=== PATIENT | female | born 1950 | race Hispanic/Latino ===

== ENCOUNTER 2020-09-22 20:04 | Inpatient (IN) | payer OTHER ==
[~2020-09-22] VITALS: Ht 160 cm; Wt 65.2 kg
[2020-09-22] MEDS ORDERED: CEFTRIAXONE 2GM VIAL ONE (21:22)
[2020-09-22] MEDS ORDERED: AZITHROMYCIN 500MG+NS 250ML 250 ML IV ONE (21:22)
[2020-09-22 21:43] LABS: BASOPHILS % (AUTO) 0.2 % (0.0-5.0); EOSINOPHILS % (AUTO) 0.9 % (0.0-8.0); HEMATOCRIT 36.6 % (36-48); LYMPHOCYTES % (AUTO) 3.3 % (21.0-51.0); MEAN CORPUSCULAR HEMOGLOBIN 26.9 pg (27.0-33.0); MEAN CORPUSCULAR HGB CONC 33.1 g/dL (32.0-36.0); MEAN CORPUSCULAR VOLUME 81.5 fL (79-99); NEUTROPHILS % (AUTO) 93.1 % (40.0-77.0); PLATELET COUNT (AUTO) 253 K/uL (130-400); RED BLOOD CELL COUNT(AUTO) 4.49 MIL/uL (4.00-5.50); RED CELL DISTRIBUTION WIDTH 12.5 % (11.0-15.5)
[2020-09-22 21:53] LABS: ABG HCO3 23.7 mmol/L (21.0-28.0); ABG OXYGEN SATURATION 91.8 % (95.0-99.0); ABG PCO2 33 mmHg (32-45)
[2020-09-22 21:57] LABS: INR 1.1 (0.85-1.15); PROTHROMBIN TIME 11.7 SEC (9.6-11.6)
[2020-09-22 21:58] LABS: PARTIAL THROMBOPLASTIN TIME 35.5 SEC (26.3-35.5)
[2020-09-22 22:09] LABS: B-TYPE NATRIURETIC PEPTIDE 134 pg/mL (0-100)
[2020-09-22 22:15] LABS: CARBON DIOXIDE 25 mmol/L (21-32); CHLORIDE 93 mmol/L (101-111); CREATININE 0.8 mg/dL (0.5-1.5); GLOMERULAR FILTR. RATE CALC 75 mL/min (>60); GLUCOSE,RANDOM 121 mg/dL (70-105); POTASSIUM 3.9 mmol/L (3.5-5.1); SODIUM SERUM 130 mmol/L (136-145); UREA NITROGEN, BLOOD 6 mg/dL (7-18)
[2020-09-22 22:22] LABS: APPEARANCE,URINE Clear (CLEAR); BILIRUBIN,URINE Negative (NEGATIVE); COLOR,URINE Yellow (YELLOW); GLUCOSE, URINE (UA) Negative (NEGATIVE); KETONES,URINE Trace mg/dL (NEGATIVE); LEUKOCYTE ESTERASE ,URINE Negative (NEGATIVE); NITRATE,URINE Negative (NEGATIVE); OCCULT BLOOD,URINE Negative (NEGATIVE); PROTEIN,URINE Negative (NEGATIVE); UROBILINOGEN,URINE 0.2 mg/dL (0.2-1.0)
[2020-09-22 22:35] LABS: ALANINE AMINOTRANSFERASE 57 U/L (12-78); ALBUMIN 2.9 g/dL (3.5-5.0); ASPARTATE AMINOTRANSFERASE 58 U/L (10-37); BILIRUBIN,TOTAL 0.5 mg/dL (0.2-1.0); CREATINE KINASE, TOTAL 142 U/L (21-232); MYOGLOBIN 107 ng/mL (10-92); TOTAL PROTEIN, SERUM 7.3 g/dL (6.0-8.3); TROPONIN I < 0.04 ng/mL (0.00-0.06)
[2020-09-22] MEDS ORDERED: ALBUTEROL INHALER 90MCG/INH IH ONE (22:40)
[2020-09-22] MEDS ORDERED: DEXAMETHASONE SOD PHOSPHATE 10MG/ML 1ML VIAL ONE (22:41)
[2020-09-22] MEDS ORDERED: IOHEXOL 350 MG/ML 100ML INFUS..BTL IV ONE (23:41)
[2020-09-22] MEDS ORDERED: DEXTROSE 50%-WATER 50 ML DISP.SYRIN IV PRN (23:45)
[2020-09-22] MEDS ORDERED: GLUCAGON 1MG KIT 1 MG ML IM PRN (23:45)
[2020-09-22] MEDS ORDERED: IPRATROPIUM/ALBUTEROL SULFATE 3 ML SOLUTION IH PRN (23:45)
[2020-09-23] MEDS: SOLU-MEDROL 40MG VIAL IVP SCH ×3 (06:00→22:00)
[2020-09-23] MEDS: FUROSEMIDE 40MG VIAL IVP SCH ×2 (06:00→18:00)
[2020-09-23 06:39] LABS: BASOPHILS % (AUTO) 0.1 % (0.0-5.0); HEMATOCRIT 33.9 % (36-48); LYMPHOCYTES % (AUTO) 3.5 % (21.0-51.0); MEAN CORPUSCULAR HEMOGLOBIN 26.9 pg (27.0-33.0); MEAN CORPUSCULAR VOLUME 81.3 fL (79-99); MONOCYTES % (AUTO) 1.2 % (3.0-13.0); NEUTROPHILS % (AUTO) 94.7 % (40.0-77.0); PLATELET COUNT (AUTO) 242 K/uL (130-400); RED BLOOD CELL COUNT(AUTO) 4.17 MIL/uL (4.00-5.50); RED CELL DISTRIBUTION WIDTH 12.6 % (11.0-15.5); WHITE BLOOD COUNT (AUTO) 10.8 K/uL (4.8-10.8)
[2020-09-23 06:46] LABS: CREATININE 0.7 mg/dL (0.5-1.5); POTASSIUM 3.8 mmol/L (3.5-5.1)
[2020-09-23 07:03] LABS: INR 1.11 (0.85-1.15); PROTHROMBIN TIME 11.8 SEC (9.6-11.6)
[2020-09-23 07:04] LABS: PARTIAL THROMBOPLASTIN TIME 34.8 SEC (26.3-35.5)
[2020-09-23 07:13] LABS: B-TYPE NATRIURETIC PEPTIDE 144 pg/mL (0-100)
[2020-09-23] MEDS: INSULIN R PO SS1 SQ SCH ×4 (07:30→21:00)
[2020-09-23 08:29] LABS: ABG BASE EXCESS 0.7 mmol/L (-2.0-3.0); ABG HCO3 24.8 mmol/L (21.0-28.0); ABG OXYGEN SATURATION 96.9 % (95.0-99.0); ABG PCO2 38 mmHg (32-45)
[2020-09-23] MEDS ORDERED: SOLU-MEDROL 40MG VIAL ONE ×2 (08:50→16:05)
[2020-09-23] MEDS ORDERED: FUROSEMIDE 40MG VIAL ONE ×2 (08:50→21:20)
[2020-09-23] MEDS ORDERED: ENOXAPARIN SODIUM 40 MG/0.4 ML SYRINGE SQ ONE (08:50)
[2020-09-23] MEDS ORDERED: CEFTRIAXONE 1G VIAL ONE ×2 (08:53→21:21)
[2020-09-23] MEDS: CEFTRIAXONE 1G VIAL IVP SCH ×2 (09:00→21:00)
[2020-09-23] MEDS: ENOXAPARIN SODIUM 40 MG/0.4 ML SYRINGE SQ SCH (09:00)
[2020-09-23] MEDS ORDERED: INSULIN HUMULIN R 100 UNIT/ML 3ML ONE ×3 (12:20→21:22)
[2020-09-23] MEDS: AZITHROMYCIN 500MG+NS 250ML 250 ML IV SCH (21:00)
[2020-09-23] MEDS ORDERED: AZITHROMYCIN 500MG+NS 250ML 250 ML IV ONE (21:21)
[2020-09-24] MEDS ORDERED: SOLU-MEDROL 40MG VIAL ONE ×2 (01:10→14:04)
[2020-09-24 03:50] LABS: ABG BASE EXCESS 3.9 mmol/L (-2.0-3.0); ABG HCO3 27.7 mmol/L (21.0-28.0); ABG OXYGEN SATURATION 93.8 % (95.0-99.0); ABG PCO2 39 mmHg (32-45)
[2020-09-24 05:31] LABS: HEMATOCRIT 38.9 % (36-48); MEAN CORPUSCULAR HGB CONC 33.4 g/dL (32.0-36.0); MEAN CORPUSCULAR VOLUME 80.7 fL (79-99); RED BLOOD CELL COUNT(AUTO) 4.82 MIL/uL (4.00-5.50); RED CELL DISTRIBUTION WIDTH 12.5 % (11.0-15.5); WHITE BLOOD COUNT (AUTO) 17.8 K/uL (4.8-10.8)
[2020-09-24 05:39] LABS: POTASSIUM 3.4 mmol/L (3.5-5.1)
[2020-09-24] MEDS: SOLU-MEDROL 40MG VIAL IVP SCH ×3 (06:00→22:26)
[2020-09-24] MEDS: FUROSEMIDE 40MG VIAL IVP SCH ×2 (06:00→18:00)
[2020-09-24] MEDS: INSULIN R PO SS1 SQ SCH ×4 (07:30→21:00)
[2020-09-24] MEDS ORDERED: CEFTRIAXONE 1G VIAL ONE (08:37)
[2020-09-24] MEDS ORDERED: ENOXAPARIN SODIUM 40 MG/0.4 ML SYRINGE SQ ONE (08:37)
[2020-09-24] MEDS ORDERED: 0.9%NACL 100ML 100 ML IV ONE (08:38)
[2020-09-24] MEDS: CEFTRIAXONE 1G VIAL IVP SCH ×2 (09:00→22:26)
[2020-09-24] MEDS: ENOXAPARIN SODIUM 40 MG/0.4 ML SYRINGE SQ SCH (09:00)
[2020-09-24] MEDS ORDERED: BUDESONIDE 0.5 MG/2 ML INH IH SCH (09:00)
[2020-09-24] MEDS ORDERED: INSULIN HUMULIN R 100 UNIT/ML 3ML ONE (12:26)
[2020-09-24] MEDS ORDERED: ACETAMINOPHEN 325 MG TAB ONE (14:26)
[2020-09-24] MEDS ORDERED: ONDANSETRON 4MG TABLET PO PRN (14:30)
[2020-09-24] MEDS ORDERED: POTASSIUM CHLORIDE 10% ELIXIR 20 MEQ/15 ML UDCUP PO PRN (14:30)
[2020-09-24] MEDS ORDERED: POTASSIUM CHLORIDE 20MEQ/100ML 100 ML IV PRN (14:30)
[2020-09-24] MEDS ORDERED: LIDOCAINE HCL-MPF 1% 2ML VIAL IV PRN (14:30)
[2020-09-24] MEDS: FLUTICASONE/VILANTEROL 1 EACH AER.POW.BA IH SCH (14:35)
[2020-09-24] MEDS ORDERED: ALBUTEROL INHALER 90MCG/INH IH PRN (14:45)
[2020-09-24] MEDS ORDERED: ACETAMINOPHEN 325 MG TAB PO PRN (14:45)
[2020-09-24] MEDS ORDERED: CHOL500050 PO (15:24)
[2020-09-24] MEDS ORDERED: A20IH1 IH (15:24)
[2020-09-24] MEDS ORDERED: DOXY100T21 PO (15:24)
[2020-09-24] MEDS ORDERED: PRAV20TA4 PO (15:24)
[2020-09-24] MEDS ORDERED: VITA100T PO (15:24)
[2020-09-24] MEDS ORDERED: PANT40TA54 PO (15:24)
[2020-09-24] MEDS ORDERED: FLUT16H NASAL (15:24)
[2020-09-24] MEDS ORDERED: ACET-3194 PO (15:24)
[2020-09-24] MEDS ORDERED: FA/M1TAB32 PO (15:24)
[2020-09-24] MEDS ORDERED: LINA145C PO (15:24)
[2020-09-24] MEDS ORDERED: FUROSEMIDE 40MG VIAL ONE (16:43)
[2020-09-24 22:00] VITALS: BP 141/63
[2020-09-24] MEDS: AZITHROMYCIN 500MG+NS 250ML 250 ML IV SCH (22:26)
[2020-09-25] VITALS: BP 143/75
[2020-09-25 03:42] LABS: ABG BASE EXCESS 5.9 mmol/L (-2.0-3.0); ABG OXYGEN SATURATION 94.4 % (95.0-99.0); ABG PCO2 41 mmHg (32-45)
[2020-09-25 04:00] VITALS: BP 133/70
[2020-09-25] MEDS: FUROSEMIDE 40MG VIAL IVP SCH ×2 (06:05→18:00)
[2020-09-25] MEDS: SOLU-MEDROL 40MG VIAL IVP SCH ×3 (06:06→22:55)
[2020-09-25 06:13] LABS: HEMATOCRIT 34.8 % (36-48); MEAN CORPUSCULAR HEMOGLOBIN 27.3 pg (27.0-33.0); MEAN CORPUSCULAR HGB CONC 33.9 g/dL (32.0-36.0); MEAN CORPUSCULAR VOLUME 80.4 fL (79-99); RED BLOOD CELL COUNT(AUTO) 4.33 MIL/uL (4.00-5.50); RED CELL DISTRIBUTION WIDTH 12.4 % (11.0-15.5); WHITE BLOOD COUNT (AUTO) 8.3 K/uL (4.8-10.8)
[2020-09-25 06:16] LABS: CREATININE 0.7 mg/dL (0.5-1.5); POTASSIUM 3.6 mmol/L (3.5-5.1)
[2020-09-25] MEDS: INSULIN R PO SS1 SQ SCH ×4 (06:52→21:00)
[2020-09-25 08:00] VITALS: BP 136/75
[2020-09-25] MEDS: LINZESS PO SCH (09:00)
[2020-09-25] MEDS: CEFTRIAXONE 1G VIAL IVP SCH ×2 (09:19→22:14)
[2020-09-25] MEDS: KCL 20 MEQ ERTAB PO PRN ×2 (09:19→13:31)
[2020-09-25] MEDS: ENOXAPARIN SODIUM 40 MG/0.4 ML SYRINGE SQ SCH (09:20)
[2020-09-25] MEDS: FLUTICASONE/VILANTEROL 1 EACH AER.POW.BA IH SCH (11:03)
[2020-09-25 12:00] VITALS: BP 143/60
[2020-09-25 18:39] VITALS: BP 134/72
[2020-09-25 21:00] VITALS: BP 145/100
[2020-09-25] MEDS: AZITHROMYCIN 500MG+NS 250ML 250 ML IV SCH (22:14)
[2020-09-26] VITALS: BP 136/72
[2020-09-26 04:01] VITALS: BP 135/67
[2020-09-26] MEDS: INSULIN R PO SS1 SQ SCH ×4 (06:08→21:00)
[2020-09-26] MEDS: FUROSEMIDE 40MG VIAL IVP SCH ×2 (06:31→17:26)
[2020-09-26] MEDS: SOLU-MEDROL 40MG VIAL IVP SCH ×3 (06:31→22:50)
[2020-09-26] MEDS: CEFTRIAXONE 1G VIAL IVP SCH ×2 (08:53→22:50)
[2020-09-26] MEDS: FLUTICASONE/VILANTEROL 1 EACH AER.POW.BA IH SCH (08:54)
[2020-09-26] MEDS: LINZESS PO SCH (08:59)
[2020-09-26] MEDS: ENOXAPARIN SODIUM 40 MG/0.4 ML SYRINGE SQ SCH (09:09)
[2020-09-26 12:17] VITALS: BP 131/68
[2020-09-26 20:00] VITALS: BP 145/71
[2020-09-26] MEDS: AZITHROMYCIN 500MG+NS 250ML 250 ML IV SCH (22:50)
[2020-09-27] VITALS: BP 127/54
[2020-09-27 03:59] VITALS: BP 126/69
[2020-09-27 04:07] LABS: HEMATOCRIT 38.2 % (36-48); MEAN CORPUSCULAR HEMOGLOBIN 26.7 pg (27.0-33.0); MEAN CORPUSCULAR HGB CONC 33.2 g/dL (32.0-36.0); MEAN CORPUSCULAR VOLUME 80.4 fL (79-99); PLATELET COUNT (AUTO) 433 K/uL (130-400); RED BLOOD CELL COUNT(AUTO) 4.75 MIL/uL (4.00-5.50); RED CELL DISTRIBUTION WIDTH 12.5 % (11.0-15.5); WHITE BLOOD COUNT (AUTO) 10.5 K/uL (4.8-10.8)
[2020-09-27 04:18] LABS: CREATININE 0.9 mg/dL (0.5-1.5); POTASSIUM 3.5 mmol/L (3.5-5.1)
[2020-09-27 04:52] LABS: LYMPHOCYTES % (MANUAL) 11 % (22-44); MAN.DIFF COMMENT-IMPRESSION MANUAL DIFFERENTIAL; MONOCYTES % (MANUAL) 5 % (2-9); SEGMENTED NEUTROPHILS % 84 % (40-70)
[2020-09-27 04:57] LABS: PLATELET MORPHOLOGY COMMENT SLIGHT INCREASED
[2020-09-27] MEDS: FUROSEMIDE 40MG VIAL IVP SCH (06:06)
[2020-09-27] MEDS: SOLU-MEDROL 40MG VIAL IVP SCH ×2 (06:06→14:24)
[2020-09-27] MEDS: INSULIN R PO SS1 SQ SCH ×2 (06:07→11:30)
[2020-09-27] MEDS: CEFTRIAXONE 1G VIAL IVP SCH (08:31)
[2020-09-27] MEDS: ENOXAPARIN SODIUM 40 MG/0.4 ML SYRINGE SQ SCH (08:32)
[2020-09-27 08:37] VITALS: BP 143/76
[2020-09-27] MEDS: FLUTICASONE/VILANTEROL 1 EACH AER.POW.BA IH SCH (08:55)
[2020-09-27] MEDS: LINZESS PO SCH (08:56)
[2020-09-27 12:00] VITALS: BP 150/52
[2020-09-27] MEDS ORDERED: FLUTICASONE PROPIONATE 50MCG/SPRAY 16 GM BOTTLE NS SCH (15:15)
[2020-09-27] MEDS ORDERED: ALBUTEROL SULFATE 90 MCG IH SCH (15:15)
[2020-09-27 16:00] VITALS: BP 138/64
[2020-09-27] MEDS ORDERED: ATORVASTATIN 10 MG TABLET PO SCH (21:00)
[2020-09-28] MEDS ORDERED: PANTOPRAZOLE 40 MG TAB DR PO SCH (09:00)
[2020-09-28] MEDS ORDERED: VITAMIN B COMPLEX 1 CAPSULE PO SCH (09:00)
[2020-09-28] MEDS ORDERED: **HM**(Linaclotide (Linzess) 145 MCG PO SCH (09:00)
[2020-09-28] MEDS ORDERED: MULTIVITAMIN WITH MINERALS TABLET PO SCH (09:00)
[2020-09-28] MEDS ORDERED: CHOLECALCIFEROL 2000 UNIT PO SCH (09:00)
== END 2020-09-27 16:10 | disposition home health service (06) | DRG 177 ==
LOC: EDH 20:04 → EDHIP 23:39 → OBSVTOIN 23:39 → INTOOBSV 23:39 → 4AH 09-24 20:35
PROVIDERS: ADMIT Internal Medicine Pulmonary Disease; ATTEND Internal Medicine Pulmonary Disease
DX: U07.1 COVID-19 (principal); J12.82 Pneumonia due to coronavirus disease 2019; J96.01 Acute respiratory failure with hypoxia; J44.0 Chronic obstructive pulmonary disease with (acute) lower respiratory infection; E78.5 Hyperlipidemia, unspecified; K21.9 Gastro-esophageal reflux disease without esophagitis; Z79.899 Other long term (current) drug therapy; Z88.8 Allergy status to other drugs, medicaments and biological substances
CPT/HCPCS: 36415; 36600; 71045; 71275; 80048; 80053; 81003; 82550; 82803; 82948; 83605; 83874; 83880; 84132; 84145; 84484; 85025; 85027; 85378; 85610; 85730; 86140; 86900; 86901; 87040; 87088; 87426; 87804; 93005; 94760; 99291; G0378; J0456; J0696; J1100; J1650; J1815; J1940; J2920; Q9967

== ENCOUNTER → 2021-06-26 | Outpatient (CLI) | payer OTHER ==
[~2021-06-26] MED LIST: A20IH1 IH; CHOL500050 PO; FA/M1TAB32 PO; FLUT16H NASAL; LINA145C PO; PANT40TA54 PO; PRAV20TA4 PO; VITA100T PO
== END | disposition home or self-care (01) ==
LOC: RAH 10:04
PROVIDERS: ATTEND Internal Medicine
DX: I07.1 Rheumatic tricuspid insufficiency (principal); E66.9 Obesity, unspecified; E78.5 Hyperlipidemia, unspecified
CPT/HCPCS: 93306; 93356

== ENCOUNTER → 2021-08-27 | Outpatient (CLI) | payer OTHER | END | disposition home or self-care (01) | LOC: RAH 09:45 | PROVIDERS: ATTEND Internal Medicine | DX: I83.813 Varicose veins of bilateral lower extremities with pain (principal); I70.203 Unspecified atherosclerosis of native arteries of extremities, bilateral legs | CPT/HCPCS: 93925; 93970 ==

== ENCOUNTER → 2021-11-03 | Outpatient (CLI) | payer OTHER | END | disposition home or self-care (01) | LOC: SHCH 09:24 | PROVIDERS: ATTEND Internal Medicine Cardiovascular Disease | DX: I87.2 Venous insufficiency (chronic) (peripheral) (principal) | CPT/HCPCS: 93970 ==

== ENCOUNTER 2022-03-15 21:49 | Emergency (ER) | payer OTHER ==
[~2022-03-15] VITALS: Ht 162.6 cm; Wt 69.9 kg
[2022-03-15 22:17] LABS: BASOPHILS % (AUTO) 0.4 % (0.0-5.0); EOSINOPHILS % (AUTO) 1.1 % (0.0-8.0); HEMATOCRIT 39.8 % (36-48); LYMPHOCYTES % (AUTO) 32.2 % (21.0-51.0); MEAN CORPUSCULAR HEMOGLOBIN 27.3 pg (27.0-33.0); MEAN CORPUSCULAR HGB CONC 32.4 g/dL (32.0-36.0); MEAN CORPUSCULAR VOLUME 84.3 fL (79-99); MONOCYTES % (AUTO) 6.3 % (3.0-13.0); NEUTROPHILS % (AUTO) 59.9 % (40.0-77.0); PLATELET COUNT (AUTO) 239 K/uL (130-400); RED BLOOD CELL COUNT(AUTO) 4.72 MIL/uL (4.00-5.50); RED CELL DISTRIBUTION WIDTH 13.1 % (11.0-15.5); WHITE BLOOD COUNT (AUTO) 7.9 K/uL (4.8-10.8)
[2022-03-15 22:34] LABS: POTASSIUM 3.7 mmol/L (3.5-5.1)
[2022-03-15 22:39] LABS: ALBUMIN 3.5 g/dL (3.5-5.0); BILIRUBIN,TOTAL 0.2 mg/dL (0.2-1.0)
[2022-03-15 23:20] LABS: B-TYPE NATRIURETIC PEPTIDE 23 pg/mL (0-100)
[2022-03-16 00:34] VITALS: BP 113/59
[2022-03-16] MEDS ORDERED: NITR0.4T SL (00:46)
== END 2022-03-16 01:19 | disposition home or self-care (01) ==
LOC: EDH 21:49
DX: R07.89 Other chest pain (principal); E78.00 Pure hypercholesterolemia, unspecified; Z90.49 Acquired absence of other specified parts of digestive tract; Z98.890 Other specified postprocedural states; Z79.899 Other long term (current) drug therapy; Z88.6 Allergy status to analgesic agent
CPT/HCPCS: 36415; 71045; 80053; 83880; 84484; 85025; 93005

== ENCOUNTER 2022-07-17 16:28 | Emergency (ER) | payer OTHER ==
[~2022-07-17] VITALS: Ht 162.6 cm; Wt 70.3 kg
[~2022-07-17 16:28] MED LIST changes: +NITR0.4T SL
[2022-07-17] MEDS ORDERED: ACETAMINOPHEN 325 MG TAB PO ONE (17:30)
[2022-07-17 17:48] LABS: BASOPHILS % (AUTO) 0.7 % (0.0-5.0); EOSINOPHILS % (AUTO) 2.6 % (0.0-8.0); LYMPHOCYTES % (AUTO) 35.6 % (21.0-51.0); MEAN CORPUSCULAR HEMOGLOBIN 27.6 pg (27.0-33.0); MEAN CORPUSCULAR HGB CONC 32.4 g/dL (32.0-36.0); MEAN CORPUSCULAR VOLUME 85.2 fL (79-99); MONOCYTES % (AUTO) 8.7 % (3.0-13.0); NEUTROPHILS % (AUTO) 51.9 % (40.0-77.0); PLATELET COUNT (AUTO) 228 K/uL (130-400); RED BLOOD CELL COUNT(AUTO) 4.46 MIL/uL (4.00-5.50); RED CELL DISTRIBUTION WIDTH 13.5 % (11.0-15.5); WHITE BLOOD COUNT (AUTO) 6.1 K/uL (4.8-10.8)
[2022-07-17 18:02] LABS: CREATININE 0.8 mg/dL (0.5-1.5)
[2022-07-17 18:06] LABS: ALBUMIN 3.3 g/dL (3.5-5.0); TOTAL PROTEIN, SERUM 6.5 g/dL (6.0-8.3)
[2022-07-17 19:11] LABS: APPEARANCE,URINE CLEAR (CLEAR); BILIRUBIN,URINE NEGATIVE (NEGATIVE); COLOR,URINE LIGHT-YELLOW (YELLOW); GLUCOSE, URINE (UA) NEGATIVE (NEGATIVE); KETONES,URINE NEGATIVE (NEGATIVE); LEUKOCYTE ESTERASE ,URINE 500 Leu/uL (NEGATIVE); NITRATE,URINE NEGATIVE (NEGATIVE); OCCULT BLOOD,URINE NEGATIVE (NEGATIVE); PROTEIN,URINE NEGATIVE (NEGATIVE); UROBILINOGEN,URINE 0.2 mg/dL (0.2-1.0)
[2022-07-17 19:21] LABS: BACTERIA,URINE RARE /HPF (None Seen); MUCUS,URINE RARE LPF (None Seen); SQUAMOUS EPITHELIAL CELL,UR FEW /HPF (0-2)
[2022-07-17] MEDS ORDERED: MACR100 PO (19:32)
[2022-07-17 19:38] VITALS: BP 149/63
[2022-07-17] MEDS ORDERED: NITROFURANTOIN MONOHYD/M-CRYST 100 MG CAPSULE PO ONE (20:00)
== END 2022-07-17 19:45 | disposition home or self-care (01) ==
LOC: EDH 16:28
DX: S16.1XXA Strain of muscle, fascia and tendon at neck level, initial encounter (principal); S39.011A Strain of muscle, fascia and tendon of abdomen, initial encounter; N30.00 Acute cystitis without hematuria; E78.00 Pure hypercholesterolemia, unspecified; Z90.49 Acquired absence of other specified parts of digestive tract; Z98.890 Other specified postprocedural states; Z79.899 Other long term (current) drug therapy; Z88.6 Allergy status to analgesic agent; V49.59XA Passenger injured in collision with other motor vehicles in traffic accident, initial encounter; Y93.89 Activity, other specified; Y92.413 State road as the place of occurrence of the external cause; Y99.8 Other external cause status
CPT/HCPCS: 36415; 70450; 71250; 72125; 74176; 80053; 81001; 85025; 87088

== ENCOUNTER → 2023-07-14 | Outpatient (CLI) | payer OTHER, MEDICARE ==
[~2023-07-14] MED LIST changes: -A20IH1 IH; +ALBU5SOL19 IH; +MACR100 PO
[2023-07-14 12:19] LABS: BASOPHILS # (AUTO) 0.04 K/uL (0.00-0.20); BASOPHILS % (AUTO) 0.7 % (0.0-5.0); EOSINOPHILS # (AUTO) 0.23 K/uL (0.00-0.70); EOSINOPHILS % (AUTO) 3.8 % (0.0-8.0); HEMATOCRIT 40.9 % (36-48); IMMATURE GRANULOCYTE ABSOLUTE 0.01 K/uL (0-1); LYMPHOCYTES # (AUTO) 2.2 K/uL (1.0-4.8); LYMPHOCYTES % (AUTO) 36.6 % (21.0-51.0); MEAN CORPUSCULAR VOLUME 87.4 fL (79-99); MONOCYTES # (AUTO) 0.5 K/uL (0.1-1.0); MONOCYTES % (AUTO) 7.9 % (3.0-13.0); NEUTROPHILS # (AUTO) 3.1 K/uL (1.8-7.7); NEUTROPHILS % (AUTO) 50.8 % (40.0-77.0); PLATELET COUNT (AUTO) 251 K/uL (130-400); RED BLOOD CELL COUNT(AUTO) 4.68 MIL/uL (4.00-5.50)
[2023-07-14 12:26] LABS: CREATININE 0.9 mg/dL (0.5-1.5); POTASSIUM 4.5 mmol/L (3.5-5.1)
[2023-07-14 12:29] LABS: INR < 0.93 (0.85-1.15); PROTHROMBIN TIME 10.1 SEC (9.6-11.6)
== END | disposition home or self-care (01) ==
LOC: LAB 08:18
PROVIDERS: ATTEND Internal Medicine Cardiovascular Disease
DX: I87.1 Compression of vein (principal); I10 Essential (primary) hypertension; I87.2 Venous insufficiency (chronic) (peripheral); E78.5 Hyperlipidemia, unspecified; M79.604 Pain in right leg; M79.605 Pain in left leg; Z86.16 Personal history of COVID-19; Z79.899 Other long term (current) drug therapy
CPT/HCPCS: 36415; 80048; 85025; 85610; 85730

== ENCOUNTER 2023-09-01 03:28 | Emergency (ER) | payer OTHER, MEDICARE ==
[~2023-09-01] VITALS: Ht 162.6 cm; Wt 70.3 kg
[2023-09-01] MEDS ORDERED: DiphenhydrAMINE HCL 50 MG/ML VIAL IV ONE (04:30)
[2023-09-01] MEDS ORDERED: KETOROLAC 15MG/ML VIAL (15MG/ML) IV ONE (04:30)
[2023-09-01] MEDS ORDERED: METOCLOPRAMIDE 10 MG TABLET PO ONE (04:30)
[2023-09-01] MEDS ORDERED: CLONIDINE HCL 0.2 MG TABLET PO ONE (04:30)
[2023-09-01 04:35] LABS: BASOPHILS # (AUTO) 0.02 K/uL (0.00-0.20); BASOPHILS % (AUTO) 0.3 % (0.0-5.0); EOSINOPHILS # (AUTO) 0.01 K/uL (0.00-0.70); EOSINOPHILS % (AUTO) 0.1 % (0.0-8.0); HEMATOCRIT 34.8 % (36-48); IMMATURE GRANULOCYTE ABSOLUTE 0.05 K/uL (0-1); LYMPHOCYTES # (AUTO) 1.9 K/uL (1.0-4.8); LYMPHOCYTES % (AUTO) 23.8 % (21.0-51.0); MEAN CORPUSCULAR HEMOGLOBIN 28.4 pg (27.0-33.0); MEAN CORPUSCULAR HGB CONC 34.2 g/dL (32.0-36.0); MEAN CORPUSCULAR VOLUME 83.1 fL (79-99); MONOCYTES # (AUTO) 0.6 K/uL (0.1-1.0); MONOCYTES % (AUTO) 7.2 % (3.0-13.0); NEUTROPHILS # (AUTO) 5.4 K/uL (1.8-7.7); PLATELET COUNT (AUTO) 250 K/uL (130-400); RED BLOOD CELL COUNT(AUTO) 4.19 MIL/uL (4.00-5.50); RED CELL DISTRIBUTION WIDTH 12.2 % (11.0-15.5); WHITE BLOOD COUNT (AUTO) 7.9 K/uL (4.8-10.8)
[2023-09-01 04:44] LABS: CREATININE 0.8 mg/dL (0.5-1.5); POTASSIUM 3.9 mmol/L (3.5-5.1)
[2023-09-01 04:49] LABS: ALBUMIN 3.1 g/dL (3.5-5.0); BILIRUBIN,TOTAL 0.3 mg/dL (0.2-1.0); RAPID GROUP A STREP negative (NEGATIVE); TOTAL PROTEIN, SERUM 6.3 g/dL (6.0-8.3)
[2023-09-01 04:56] LABS: SARS-CoV-2, RNA, NAAT NEGATIVE SARS CoV-2 (NEGATIVE)
[2023-09-01 05:00] LABS: INFLUENZA TYPE A Negative For Type A (NEGATIVE); INFLUENZA TYPE B Negative For Type B (NEGATIVE)
[2023-09-01 05:24] LABS: B-TYPE NATRIURETIC PEPTIDE 63 pg/mL (0-100)
[2023-09-01] MEDS ORDERED: DIPHENHYDRAMINE HCL 25 MG CAPSULE ONE (06:45)
[2023-09-01] MEDS ORDERED: KETOROLAC 10 MG TABLET ONE (06:45)
[2023-09-01 07:06] LABS: APPEARANCE,URINE CLEAR (CLEAR); BILIRUBIN,URINE NEGATIVE (NEGATIVE); COLOR,URINE COLORLESS (YELLOW); GLUCOSE, URINE (UA) NEGATIVE (NEGATIVE); KETONES,URINE NEGATIVE (NEGATIVE); LEUKOCYTE ESTERASE ,URINE NEGATIVE Leu/uL (NEGATIVE); NITRATE,URINE NEGATIVE (NEGATIVE); OCCULT BLOOD,URINE NEGATIVE (NEGATIVE); PH,URINE 6.5 (5.0-8.0); PROTEIN,URINE NEGATIVE (NEGATIVE); UROBILINOGEN,URINE 0.2 mg/dL (0.2-1.0)
[2023-09-01 07:07] LABS: ADD UA MICROSCOPIC NO
[2023-09-01 08:53] VITALS: BP 122/96; PULSE 56; RESP 18; O2SAT 97
[2023-09-01] MEDS ORDERED: SUMA25TA25 PO (08:59)
[2023-09-01] MEDS ORDERED: METO-296 PO (08:59)
== END 2023-09-01 09:42 | disposition home or self-care (01) ==
LOC: EDH 03:28
DX: G43.909 Migraine, unspecified, not intractable, without status migrainosus (principal); I10 Essential (primary) hypertension; E11.9 Type 2 diabetes mellitus without complications; E78.00 Pure hypercholesterolemia, unspecified; F03.90 Unspecified dementia, unspecified severity, without behavioral disturbance, psychotic disturbance, mood disturbance, and anxiety; Z20.822 Contact with and (suspected) exposure to COVID-19; Z90.49 Acquired absence of other specified parts of digestive tract; Z79.899 Other long term (current) drug therapy; Z98.890 Other specified postprocedural states
CPT/HCPCS: 99285; 96374; 70450; 71045; 87635; 96375; 84484; 80053; 83880; 85025; 87880; 87804 ×2; 81003; 36415; 93005; Q0163; C9803

== ENCOUNTER 2023-09-22 06:21 | Day surgery (SDC) | payer OTHER, MEDICARE ==
[2023-09-20 13:11] VITALS: BP 175/80; PULSE 61; RESP 18
[2023-09-20 13:25] LABS: BASOPHILS # (AUTO) 0.03 K/uL (0.00-0.20); BASOPHILS % (AUTO) 0.6 % (0.0-5.0); HEMATOCRIT 38.1 % (36-48); IMMATURE GRANULOCYTE ABSOLUTE 0.02 K/uL (0-1); LYMPHOCYTES # (AUTO) 1.8 K/uL (1.0-4.8); LYMPHOCYTES % (AUTO) 35.9 % (21.0-51.0); MEAN CORPUSCULAR HEMOGLOBIN 28.1 pg (27.0-33.0); MEAN CORPUSCULAR HGB CONC 32.3 g/dL (32.0-36.0); MONOCYTES # (AUTO) 0.4 K/uL (0.1-1.0); MONOCYTES % (AUTO) 7.8 % (3.0-13.0); NEUTROPHILS # (AUTO) 2.7 K/uL (1.8-7.7); NEUTROPHILS % (AUTO) 53.3 % (40.0-77.0); PLATELET COUNT (AUTO) 244 K/uL (130-400); RED BLOOD CELL COUNT(AUTO) 4.38 MIL/uL (4.00-5.50); RED CELL DISTRIBUTION WIDTH 13.1 % (11.0-15.5)
[2023-09-20 13:34] LABS: CREATININE 0.7 mg/dL (0.5-1.5); POTASSIUM 4.4 mmol/L (3.5-5.1)
[2023-09-20 13:44] LABS: INR < 0.93 (0.85-1.15); PROTHROMBIN TIME 10.2 SEC (9.6-11.6)
[2023-09-20 13:45] LABS: PARTIAL THROMBOPLASTIN TIME 30.3 SEC (26.3-35.5)
[2023-09-20 14:03] LABS: B-TYPE NATRIURETIC PEPTIDE 78 pg/mL (0-100)
[~2023-09-22] VITALS: Ht 162.6 cm; Wt 70.4 kg
[2023-09-22] VITALS (11 sets, daily range): BP systolic 117–168; BP diastolic 48–79; PULSE 52–61; RESP 14–18
[~2023-09-22 06:21] MED LIST changes: -ALBU5SOL19 IH; +ASPI-1443 PO; +CEFU500T67 PO; -CHOL500050 PO; +CLOP75TA32 PO; +GLUC-252 PO; -MACR100 PO; +MEMA5TAB42 PO; +METO-391 PO; -PRAV20TA4 PO; +ROSU5TAB12 PO; +TRAZ-185 PO; +[UNRECOGNIZED DRUG - OTHER] OU
[2023-09-22] MEDS ORDERED: LIDOCAINE HCL 400MG/20ML VIAL ONE (09:48)
[2023-09-22] MEDS ORDERED: HEPARIN 10,000 UNIT/10ML (1,000 UNIT/ML) VIAL ONE (09:48)
[2023-09-22] MEDS ORDERED: BIVALIRUDIN 250 MG/VIAL IV ONE (09:48)
[2023-09-22] MEDS ORDERED: FENTANYL CITRATE PF 50 MCG/1 ML 2ML VIAL ONE (09:48)
[2023-09-22] MEDS ORDERED: MIDAZOLAM HCL 1 MG/ML 2ML VIAL ONE (09:48)
[2023-09-22] MEDS ORDERED: IOHEXOL 350 MG/ML 100ML INFUS..BTL IV ONE (10:30)
[2023-09-22] MEDS ORDERED: DEXTROSE 50%-WATER 50 ML DISP.SYRIN IV PRN (11:00)
[2023-09-22] MEDS ORDERED: GLUCAGON 1MG KIT 1 MG ML IM PRN (11:00)
[2023-09-22] MEDS ORDERED: 0.9%NACL 1000ML 1,000 ML IV SCH (11:00)
[2023-09-22] MEDS ORDERED: ATROPINE 1MG SYG IVP ONE (11:19)
== END 2023-09-22 15:10 | disposition home or self-care (01) ==
LOC: DAH 06:21
PROVIDERS: ATTEND Internal Medicine Cardiovascular Disease
DX: I25.110 Atherosclerotic heart disease of native coronary artery with unstable angina pectoris (principal); I10 Essential (primary) hypertension; E78.5 Hyperlipidemia, unspecified; I87.1 Compression of vein; I87.2 Venous insufficiency (chronic) (peripheral); E66.3 Overweight; Z90.49 Acquired absence of other specified parts of digestive tract; Z98.890 Other specified postprocedural states; Z86.16 Personal history of COVID-19; Z68.26 Body mass index [BMI] 26.0-26.9, adult; Z79.01 Long term (current) use of anticoagulants; Z79.899 Other long term (current) drug therapy
CPT/HCPCS: 80048; 83880; 85025; 85610; 85730; 36415; 71045; 93005; 93458; C1894 ×2; J3010; J3490; J2250; J1644; Q9967; A4335; A4222; A4221; A4663; A4216; A4606; Q9965; A4223 ×3; A4554; 96360; 96361; 99156; 99157; J0461; J0583

== ENCOUNTER → 2024-02-07 | Outpatient (CLI) | payer OTHER ==
[~2024-02-07] MED LIST changes: +MEMA5TAB16 PO; -MEMA5TAB42 PO; -ROSU5TAB12 PO; +ROSU5TAB43 PO
[2024-02-07 12:17] LABS: BASOPHILS # (AUTO) 0.05 K/uL (0.00-0.20); BASOPHILS % (AUTO) 0.8 % (0.0-5.0); EOSINOPHILS # (AUTO) 0.19 K/uL (0.00-0.70); HEMATOCRIT 38.8 % (36-48); IMMATURE GRANULOCYTE ABSOLUTE 0.02 K/uL (0-1); LYMPHOCYTES # (AUTO) 2.4 K/uL (1.0-4.8); LYMPHOCYTES % (AUTO) 37.9 % (21.0-51.0); MEAN CORPUSCULAR HEMOGLOBIN 27.9 pg (27.0-33.0); MEAN CORPUSCULAR HGB CONC 32.2 g/dL (32.0-36.0); MEAN CORPUSCULAR VOLUME 86.6 fL (79-99); MONOCYTES # (AUTO) 0.5 K/uL (0.1-1.0); MONOCYTES % (AUTO) 7.5 % (3.0-13.0); NEUTROPHILS # (AUTO) 3.2 K/uL (1.8-7.7); NEUTROPHILS % (AUTO) 50.5 % (40.0-77.0); PLATELET COUNT (AUTO) 269 K/uL (130-400); RED BLOOD CELL COUNT(AUTO) 4.48 MIL/uL (4.00-5.50); RED CELL DISTRIBUTION WIDTH 13.2 % (11.0-15.5); WHITE BLOOD COUNT (AUTO) 6.3 K/uL (4.8-10.8)
[2024-02-07 12:27] LABS: INR <= 0.93 (0.85-1.15); PROTHROMBIN TIME 10.1 SEC (9.6-11.6)
[2024-02-07 12:29] LABS: PARTIAL THROMBOPLASTIN TIME 29.3 SEC (26.3-35.5)
[2024-02-07 12:38] LABS: CREATININE 0.9 mg/dL (0.5-1.0); POTASSIUM 4.6 mmol/L (3.5-5.1)
== END | disposition home or self-care (01) ==
LOC: LAB 08:47
PROVIDERS: ATTEND Internal Medicine Cardiovascular Disease
DX: I87.1 Compression of vein (principal); I10 Essential (primary) hypertension; Z79.01 Long term (current) use of anticoagulants
CPT/HCPCS: 36415; 80048; 85025; 85610; 85730